=== PATIENT | female | born 1960 | race Caucasian/White ===

== ENCOUNTER → 2022-06-08 08:08 | Outpatient (CLI) | payer BC, SELFPAY ==
[2022-06-08 08:52] LABS: Estimated Glomerular Filt Rate > 60 mL/min (>60)
== END ==
PROVIDERS: Radiology Diagnostic Radiology; PCP Student in an Organized Health Care Education/Training Program; Referring Provider Student in an Organized Health Care Education/Training Program; Visit Provider Student in an Organized Health Care Education/Training Program
DX: R10.13 Epigastric pain (principal)
CPT/HCPCS: 36415; 82565

== ENCOUNTER → 2022-06-09 11:25 | Outpatient (CLI) | payer BC, SELFPAY ==
--- NOTE | 2022-06-09 | DI.CT.S_ITS ---
PROCEDURE: CT ABDOMEN PELVIS W CON INDICATIONS: Epigastric pain TECHNIQUE: After the administration of oral and intravenous contrast, axial sections were acquired from the lung bases to the pubic symphysis. Coronal and sagittal reformats were performed. For radiation dose reduction, the following was used: automated exposure control, adjustment of mA and/or kV according to patient size. COMPARISON:None. FINDINGS: Image quality: Excellent. Lung bases: Unremarkable. Heart: No significant findings. ABDOMEN: Liver: Unremarkable. Gallbladder: Cholelithiasis without wall thickening or adjacent fat stranding to suggest acute cholecystitis. Biliary ducts: Unremarkable. Pancreas: Unremarkable. Spleen: Unremarkable. Adrenal Glands: Unremarkable. Kidneys and Ureters: No complex renal cystic lesions which require follow-up. Stomach and Bowel: Stomach, small bowel loops, and colon are unremarkable. Peritoneum: No abnormal intraperitoneal fluid. No free air. Ventral Wall: Ventral wall hernia containing fat. The sac measures 3.8 x 2.2 centimeters and the neck measures 1.1 centimeters. Additional umbilical hernia containing fat. Abdominal Nodes: No retroperitoneal or mesenteric adenopathy by size criteria. Vessels: Aorta and inferior vena cava are normal in size. PELVIS: Pelvic Organs: Unremarkable. Bladder: Unremarkable. Pelvic Nodes: No enlarged lymph nodes. Miscellaneous: No inguinal hernias are seen. Right inguinal mass with a focus of central hypoattenuation measuring 4.4 x 3.1 centimeters (series 2, image 95). Bones: Unremarkable. IMPRESSION: Right inguinal mass with a focus of central hypoattenuation measuring 4.4 x 3.1 centimeters (series 2, image 95). Differential includes severely abnormal lymph node, less likely soft tissue sarcoma. Evaluation with ultrasound should be considered, and tissue sampling may be warranted (accessible with ultrasound-guided biopsy). Cholelithiasis without evidence of acute cholecystitis. Small, fat containing umbilical hernia. Dictated by: Fletcher Suarez M.D. on 06/09/2022 at 14:36 Approved by: Fletcher Suarez M.D. on 06/09/2022 at 14:40
== END ==
PROVIDERS: PCP Student in an Organized Health Care Education/Training Program; Referring Provider Student in an Organized Health Care Education/Training Program; Visit Provider Student in an Organized Health Care Education/Training Program
DX: R10.13 Epigastric pain (principal); R19.03 Right lower quadrant abdominal swelling, mass and lump; K80.20 Calculus of gallbladder without cholecystitis without obstruction; K42.9 Umbilical hernia without obstruction or gangrene
CPT/HCPCS: 74177

== ENCOUNTER → 2022-07-26 09:56 | Outpatient (CLI) | payer BC, SELFPAY ==
--- NOTE | 2022-07-26 | DI.MG.S_ITS ---
BILATERAL DIGITAL SCREENING MAMMOGRAM 3D/2D WITH CAD: 07/26/2022 CLINICAL: Routine screening. Family history of breast cancer. Comparison is made to exams dated: 07/20/2021 mammogram and 10/13/2018 mammogram - outside facility. There are scattered areas of fibroglandular density in both breasts (category b / 25%-50% glandular tissue). Current study was also evaluated with a Computer Aided Detection (CAD) system. No significant masses, calcifications, or other findings are seen in either breast. There has been no significant interval change. IMPRESSION: NEGATIVE There is no mammographic evidence of malignancy. A 1 year screening mammogram is recommended. Based on the Tyrer Cuzick model (a risk assessment model) the patient's lifetime risk is 11.3% and her 10 year risk is 5.0%. According to the ACR, ACS, and NCCN guidelines, an annual breast MRI exam along with mammogram is recommended if the patient's lifetime risk is 20% or greater. This exam was interpreted at Station ID: [id number]. NOTE: For mammograms, a report in lay terms will be sent to the patient. Approximately 15% of breast malignancies will not be visualized mammographically. In the management of a palpable breast mass, a negative mammogram must not discourage biopsy of a clinically suspicious lesion. Electronically Signed By: Clif gant/[email or web address]:07/26/2022 10:49:33 letter sent: Normal Exam ACR BI-RADS Category 1: Negative 3341F
== END ==
PROVIDERS: PCP Student in an Organized Health Care Education/Training Program; Referring Provider Student in an Organized Health Care Education/Training Program; Visit Provider Student in an Organized Health Care Education/Training Program
DX: Z12.31 Encounter for screening mammogram for malignant neoplasm of breast (principal); Z80.3 Family history of malignant neoplasm of breast
CPT/HCPCS: 77063; 77067

== ENCOUNTER → 2023-08-04 09:03 | Outpatient (CLI) | payer OTHER, SELFPAY ==
--- NOTE | 2023-08-04 09:05 | DI.MG.S_ITS ---
BILATERAL DIGITAL SCREENING MAMMOGRAM 3D/2D WITH CAD: 08/04/2023 CLINICAL: Routine screening. Family history of breast cancer. Comparison is made to exams dated: 07/20/2021 mammogram - outside facility, 07/26/2022 mammogram - [facility], and 10/13/2018 mammogram - outside facility. There are scattered areas of fibroglandular density in both breasts (category b / 25%-50% glandular tissue). Current study was also evaluated with a Computer Aided Detection (CAD) system. There are benign post operative findings in the right breast. No significant masses, calcifications, or other findings are seen in either breast. There has been no significant interval change. IMPRESSION: BENIGN There is no mammographic evidence of malignancy. A 1 year screening mammogram is recommended. Based on the Tyrer Cuzick model (a risk assessment model) the patient's lifetime risk is 11.0% and her 10 year risk is 5.0%. According to the ACR, ACS, and NCCN guidelines, an annual breast MRI exam along with mammogram is recommended if the patient's lifetime risk is 20% or greater. This exam was interpreted at Station ID: [id number]. NOTE: For mammograms, a report in lay terms will be sent to the patient. Approximately 15% of breast malignancies will not be visualized mammographically. In the management of a palpable breast mass, a negative mammogram must not discourage biopsy of a clinically suspicious lesion. Electronically Signed By: Clif gant/[email or web address]:08/04/2023 12:28:18 letter sent: Normal Exam ACR BI-RADS Category 2: Benign Finding(s) 3342F
== END ==
LOC: MAMMO 09:04
PROVIDERS: PCP Student in an Organized Health Care Education/Training Program; Referring Provider Student in an Organized Health Care Education/Training Program; Visit Provider Student in an Organized Health Care Education/Training Program
DX: Z12.31 Encounter for screening mammogram for malignant neoplasm of breast (principal); Z85.3 Personal history of malignant neoplasm of breast; R92.323 Mammographic fibroglandular density, bilateral breasts
CPT/HCPCS: 77063; 77067

== ENCOUNTER 2023-10-05 12:57 | Day surgery (SDC) | payer BC, SELFPAY ==
[2023-10-03 12:29] VITALS: BMI 24.0
--- NOTE | 2023-10-05 | PATH_ITS ---
[facility] Accession Number: [id number] No. of containers..01 Tissue . 01 Material submitted: . gallbladder - GALLBLADDER . 01 Diagnosis: GALLBLADDER, CHOLECYSTECTOMY: Mild, chronic calculous cholecystitis. Benign lymph node with reactive changes. Negative for dysplasia and malignancy. [facility] 10/10/2023 1455 Local . 01 Electronically signed: . Opal Chacon MD, Pathologist NPI- [id number] . 01 Gross description: . Received in formalin with two patient identifiers and gallbladder, is an intact gallbladder, 7.6 x 4.1 x 3.8 cm, with an unremarkable external surface. The cystic duct margin is inked blue, and a cobian lymph node candidate, 0.5 cm in greatest dimension. The lumen contains dark green viscous bile with several dark faceted calculi measuring up to 1.4 cm in greatest dimension not grossly obstructing the cystic duct. The mucosa is green and velvety with no yellow areas of discoloration, polyps, or lesions identified. The galarza average 0.2 cm thick. Process Plant Operator sections to include the cystic duct margin, intact lymph node candidate, and full thickness sections are submitted in A1. ([id number]) /MRV 10/07/2023 1737 Local . 01 Pathologist provided ICD-10: K80.51, K42.9 . 01 CPT . 449539 Specimen Comment: A courtesy copy of this report has been sent to [phone] Performed at: [address] [address] [address], [place], [place] [id number] MD Mark Johnson MD Phone: [phone]
[2023-10-05 13:21] VITALS: BP 153/80; PULSE 62; RESP 14; TEMP 36.1; O2SAT 94
--- NOTE | 2023-10-05 13:42 | PM.PREOP ---
Pre-operative Note Interval Note History & Physical reviewed/Exam performed by Physician: Yes Changes to H&P: No
--- NOTE | 2023-10-05 13:49 | SUR.OPER ---
Supine on padded OR bed, head on pillow, LEFT arm padded and tucked at side, right arm out on padded arm board. legs uncrossed, safety belt at thigh, tape over blanket over lower legs .
[2023-10-05] MEDS: SCOPOLAMINE 1 PATCH TOP (13:55)
[2023-10-05] MEDS: LACTATED RINGERS 1,000 ML 42 ML IV ×2 (13:56→16:58)
[2023-10-05] MEDS: ACETAMINOPHEN IV 1,000 MG/100 ML VIAL 400 MG IV (14:00)
[2023-10-05] MEDS: CLINDAMYCIN 900 MG/50 ML PIGGYBACK 50 MG IV (14:18)
[2023-10-05] MEDS: BUPIVACAINE 0.25% (PF) VIAL 30 ML INJ (14:28)
--- NOTE | 2023-10-05 15:22 | P.OP_ITS ---
Operative Date/Time/Diagnoses Date of procedure: 10/05/23 Time of procedure: 15:23 Pre-op diagnosis: Umbilical hernia, biliary colic Post-op diagnosis: same Procedure & Clinicians Procedure: Laparoscopic cholecystectomy, umbilical hernia repair with mesh Same procedure as scheduled: Yes Indications: Symptomatic umbilical hernia. Symptoms and radiographic findings consistent with biliary colic. Surgeon: Cale Morataya Motor Equipment Lieutenant: John Zuluaga Anesthesia Type: General Operative Notes Findings: 2 cm fascial defect at the umbilicus containing omentum. Critical view of safety established. Signs of chronic cholecystitis. Specimen(s): other (Gallbladder) Estimated Blood Loss (mL): 20 Procedure in detail: The patient was placed supine on the table and bilateral lower extremity compression devices were applied. Anesthesia was induced they were intubated with an endotracheal tube and received 2g of Ancef. A time-out was performed. They were prepped and draped in sterile fashion. An infraumbilical incision was made. The fascia was elevated incised and the abdomen was entered atraumati mariano. A blunt tip 12mm balloon trocar was then inserted, pneumoperitoneum was established and inspection of the abdomen demonstrated no evidence of injury. They were placed head up and right side up and then a 11 mm port was placed high in the epigastrium and two 5mm in the right upper quadrant. The gallbladder was grasped by the fundus and retracted over the liver and retracted laterally by t he infundibulum. Using electrocautery the lateral plane between the gallbladder and the liver was opened towards the fundus. The gallbladder was then retracted laterally and the medial plane was developed in the same manner. With the gallbladder mobilized the bottom of the cystic plate was visualized. The hepatocystic triangle was meticulosly skeletonized with blunt dissection of fat and fibrous tissue from both the front and the back. Only two structures were then clearly seen entering the gallbladder the cystic duct and the cystic artery. With the critical view of safety fully established the cystic duct was clipped twice proximally and once distally using the 10 mm Weck hemoclip applied under direct visualization and then sharply divided. The cystic artery was divided in the same fashion. The gallbladder was removed from the liver bed using electro cautery. The liver bed was then inspected for hemostasis and this was achieved. The abdomen was irrigated with sterile saline and inspection was made that showed the clips in good position. The specimen was removed using Endo-Catch. The abdomen was desufflated. The umbilical fascial defect was approximately 2 cm. The fascial edges were cleaned and then we inserted a 4.3 cm ventralex mesh into a sublay position and fashion to the fascia using Ethibond suture. Skin incisions were irrigated and closed with 4-0 Monocryl. 30 ml of 0.25% bupivacaine was infiltrated into the subcutaneous tissue of the incisions. The wounds were sealed with Dermabond. Patient emerged from anesthesia was extubated and transferred to recovery in stable condition. The sponge and instrument count at the end of the operation was correct. Complications: none Post-operative Condition: stable Disposition: same day surgery
[2023-10-05 15:25] VITALS: BP 122/86; PULSE 67; RESP 12; TEMP 36.1; O2SAT 98
[2023-10-05 15:29] VITALS: BP 131/78; PULSE 67; RESP 16; TEMP 36.2; O2SAT 100
[2023-10-05 15:34] VITALS: BP 145/81; PULSE 63; RESP 14; TEMP 36.2; O2SAT 100
[2023-10-05 15:49] VITALS: BP 127/86; PULSE 58; RESP 12; TEMP 36.2; O2SAT 100
[2023-10-05] MEDS: ONDANSETRON 4 MG/2 ML INJ IV (16:06)
[2023-10-05] MEDS: diphenhydrAMINE 50 MG/ML VIAL 25 MG IV (16:44)
[2023-10-05] MEDS: PROCHLORPERAZINE 10 MG/2 ML VIAL IV (16:44)
[2023-10-05 16:56] VITALS: BP 146/74; PULSE 60; RESP 16; O2SAT 97
== END 2023-10-05 17:38 | disposition home or self-care (01) ==
PROVIDERS: PCP Student in an Organized Health Care Education/Training Program; Referring Provider Surgery; Visit Provider Surgery
PROC: 0FT44ZZ Resection of Gallbladder, Percutaneous Endoscopic Approach (ICD-10-PCS; CPT 47562; principal; 2023-10-05 14:45)
PROC: (CPT 47562; 2023-10-05 14:45)
DX: K80.10 Calculus of gallbladder with chronic cholecystitis without obstruction (principal); K42.9 Umbilical hernia without obstruction or gangrene
CPT/HCPCS: 47562; 82962; J0136; J0780; J1100; J1200; J1885; J2405; J2704; J3010